=== PATIENT | female | born 2000 | race African-American/Black ===

== ENCOUNTER 2023-11-08 08:23 | Emergency (ER) | payer MEDICAID ==
[~2023-11-08] VITALS: Ht 160 cm; Wt 63.0 kg
[2023-11-08 08:30] VITALS: O2SAT 100
[2023-11-08] MEDS: SODIUM CHLORIDE 0.9% 1,000 ML IV ONE (08:45)
[2023-11-08] MEDS: TAMSULOSIN HCL 0.4MG SR CAPSULE PO ONE (09:00)
[2023-11-08 09:11] LABS: CLARITY URINE CLOUDY (CLEAR); COLOR URINE YELLOW (YELLOW); GLUCOSE URINE NEGATIVE (NEGATIVE); KETONES URINE 1+ (NEGATIVE); LEUKOCYTE ESTERASE URINE NEGATIVE (NEGATIVE); NITRITE URINE NEGATIVE (NEGATIVE); OCCULT BLOOD URINE TRACE (NEGATIVE); PH URINE 8.5 (4.5-8.0); PROTEIN URINE NEGATIVE (NEGATIVE); SPECIFIC GRAVITY URINE 1.015 (1.005-1.030)
[2023-11-08 09:16] LABS: BASOPHILS % 0.4 % (0.0-2.0); EOSINOPHILS % 1.8 % (0.0-5.0); HEMATOCRIT. 39.6 % (36.0-48.0); HEMOGLOBIN. 13.3 g/dL (12.0-16.0); LYMPHOCYTES % 14.2 % (20.0-50.0); MEAN CORPUSCULAR HEMOGLOBIN 29.6 pg (28.0-32.0); MEAN CORPUSCULAR HGB CONC 33.6 g/dL (31.0-37.0); MONOCYTES % 7.1 % (2.0-8.0); NEUTROPHILS % 76.5 % (40.0-76.0); PLATELET 332 x1000/uL (130-400); RED CELL DISTRIBUTION WIDTH 14.3 % (11.6-14.6); WHITE BLOOD COUNT 9.9 x1000/uL (4.5-11.0)
[2023-11-08] MEDS: KETOROLAC 30MG/ML VIAL IV STA (09:18)
[2023-11-08 09:25] LABS: SQUAMOUS EPITHELIAL CELL URINE 1+ /lpf (RARE/1+)
[2023-11-08 09:26] LABS: AMORPHOUS SEDIMENT URINE 1+ /lpf
[2023-11-08 09:27] LABS: BACTERIA URINE 2+
[2023-11-08 09:28] LABS: RBC URINE 0-2 /hpf (0-2); WBC URINE 0-2 /hpf (0-2)
[2023-11-08 09:39] LABS: ALANINE AMINOTRANSFERASE 14 IU/L (10-49); ASPARTATE AMINOTRANSFERASE 24 IU/L (<34); BILIRUBIN TOTAL 0.9 mg/dL (0.1-1.0); CALCIUM 9.5 mg/dL (8.7-10.4); CARBON DIOXIDE 24 mEq/L (21-32); CHLORIDE 104 mEq/L (98-107); GLUCOSE 101 mg/dL (70-105); PROTEIN TOTAL 8.2 g/dL (6.0-8.3); SODIUM 138 mEq/L (136-145); UREA NITROGEN BLOOD 9 mg/dL (9-23)
[2023-11-08 10:30] VITALS: BP 118/72; PULSE 66; RESP 19; TEMP 98
[2023-11-08] MEDS ORDERED: NAPR-420 MT (10:31)
== END 2023-11-08 10:34 | disposition home or self-care (01) ==
LOC: ER 08:23
DX: N20.0 Calculus of kidney (principal); J45.909 Unspecified asthma, uncomplicated; Z87.19 Personal history of other diseases of the digestive system
CPT/HCPCS: 80053; 81003; 81025; 85025; 36415; 76770; 96361; 96374; 99285; J1885; J7030; Z7610

== ENCOUNTER 2024-12-24 11:59 | Emergency (ER) | payer MEDICAID ==
[~2024-12-24] VITALS: Ht 154.9 cm; Wt 68.9 kg
[~2024-12-24 11:59] MED LIST: NAPR-420 MT
[2024-12-24] MEDS: PREDNISONE 20MG TABLET PO SCH (12:25)
[2024-12-24] MEDS: ALBUTEROL (0.5%) 2.5MG/0.5ML NEB HHN ONE (12:45)
[2024-12-24] MEDS: IPRATROPIUM BROMIDE (0.02%) 0.5MG/2.5ML NEB HHN ONE (12:46)
[2024-12-24 12:50] VITALS: PULSE 78; RESP 16; O2SAT 98
[2024-12-24] MEDS ORDERED: ALBU90AE3 INH (13:47)
[2024-12-24] MEDS ORDERED: ALBU05 NEB (13:47)
[2024-12-24 13:59] VITALS: BP 121/71; PULSE 69; RESP 19; TEMP 36.6; O2SAT 100
== END 2024-12-24 14:01 | disposition home or self-care (01) ==
LOC: ER 11:59
DX: J45.901 Unspecified asthma with (acute) exacerbation (principal); Z76.0 Encounter for issue of repeat prescription; Z79.52 Long term (current) use of systemic steroids
CPT/HCPCS: 94640; 99283; J7512; Z7610 ×4; 94070; 94664